=== PATIENT | female | born 1945 | race Caucasian/White ===

== ENCOUNTER → 2016-09-22 | Outpatient (CLI) | payer MEDICARE, BC ==
--- NOTE | 2016-09-22 12:47 | BD ---
EXAMINATION TYPE: MG DEXA axial skeleton. DATE OF EXAM: 09/22/2016 COMPARISON: 06.13.2014 DEXA bone scan CLINICAL HISTORY: M81.0 KNOWN OSTEOPOROSIS Height: 63 Weight: 178 FRAX RISK QUESTIONS: Alcohol (3 or more units per day): NO Family History (Parent hip fracture): NO Glucocorticoids (More than 3mos): NO (Ex: prednisone, prednisolone, methylprednisolone, dexamethasone, and hydrocortisone). History of Fracture in Adulthood: NO Secondary Osteoporosis: NO 1. Type 1 Diabetes: NO 2. Hyperthyroidism: NO 3. Menopause before 45: UNSURE 4. Malnutrition: NO 5. Chronic liver disease: NO Rheumatoid Arthritis: NO Current Tobacco Use: NO, QUIT 30 YRS AGO RISK FACTORS HISTORY OF: Family History of Osteoporosis: NONE AWARE OF Active: NO NOT REALLY, ARTHRITIS Diet low in dairy products/other sources of calcium: NO Postmenopausal woman: PARTIAL HYST AT AGE 32 Lost more than 2 inches in height since high school: NOT QUITE Hyperparathyroidism: NO Adrenal Insufficiency: NO MEDICATIONS: Prednisone or other steroids: NO Thyroid Medications: YES, SYNTHROID How Lon YRS Additional Medications: BP MEDS, ACID REFLUX MEDS, VIT D Additional History: SEVERE OSTEOARTHRITIS, ANKYLOSING SPONDYLOSIS, EXAM MEASUREMENTS: Bone mineral densitometry was performed using the [employer] System. Bone mineral density as measured about the Lumbar spine is: ----- L1-L4(G/cm2): 1.345 T Score Values are as follows: ----- L1: 0.6 ----- L2: 0.5 ----- L3: 0.9 ----- L4: 3.0 ----- L1-L4: 1.4 Bone mineral density has: Increased 6.0% since study of: 06.13.2014 Bone mineral density about the R hip (g/cm2): 0.839 Bone mineral density about the L hip (g/cm2): 0.856 T Score values are as follows: -----R Neck: -1.5 -----L Neck: -1.7 -----R Total: -1.3 -----L Total: -1.2 Bone mineral density has: Decreased -2.3% since study of: 06.13.2014 FRAX %'S: THERE IS A 10.0% CHANCE OF A MAJOR OSTEOPOROTIC FX AND A 1.5% CHANCE OF A HIP FX......P ROBABILITY IN 10 YRS TIME IMPRESSION: Osteopenia (T Score between -2.5 and -1 as noted by T score values in the bilateral hips remains pres ent. There remains slightly increased risk of fracture and the patient may be considered for treatmen t. Re-Screen 2-5 years. NOTE: T-SCORE=SD OF THE YOUNG ADULT MEAN.
--- NOTE | 2016-09-23 10:30 | MM ---
Reason for exam: screening (asymptomatic). Last mammogram was performed 1 year ago. History: Patient is postmenopausal. Family history of breast cancer in mother at age 65. Physical Findings: A clinical breast exam by your physician is recommended on an annual basis and results should be correlated with mammographic findings. MG 3D Screening Mammo W/Cad Bilateral CC and MLO view(s) were taken. Prior study comparison: September 11, 2015, right breast MG 3d work up w/cad RT. September 07, 2015, bilateral MG screening mammo w CAD. The breast tissue is heterogeneously dense. This may lower the sensitivity of mammography. Finding: There are typically benign round, diffuse and grouped calcifications in both breasts. Prominent ducts subaerolar left breast stable. There is no discrete abnormality. ASSESSMENT: Benign, BI-RAD 2 RECOMMENDATION: Routine screening mammogram of both breasts in 1 year.
== END | disposition home or self-care (01) ==
LOC: RADMAMWWP 10:00
PROVIDERS: ATTEND Internal Medicine Geriatric Medicine
DX: Z12.31 Encounter for screening mammogram for malignant neoplasm of breast (principal); M85.88 Other specified disorders of bone density and structure, other site
CPT/HCPCS: 77080; 77063; G0202

== ENCOUNTER → 2017-04-02 | Outpatient (CLI) | payer MEDICARE, BC ==
--- NOTE | 2017-04-02 09:38 | US ---
EXAMINATION TYPE: US thyroid st tissue head/neck DATE OF EXAM: 04/02/2017 COMPARISON: NONE CLINICAL HISTORY: Goiter E04.9. GLAND SIZE: Right Lobe: 4.8 x 2.0 x 1.9 cm Overall Parenchyma: homogenous Left Lobe: 4.5 x 1.8 x 1.4 cm Overall Parenchyma: homogeneous Isthmus Thickness: 0.5 cm NODULES RIGHT: # of nodules measured on right: 1 1. 0.3 X 0.1 x 0.3 cm echogenic nodule at the upper pole with well-defined margins; . This nodule is wider than tall and shows no intranodular vascularity. Prior size: no prior LEFT: # of nodules measured on left: 1 1. 0.2 X 0.2 x 0.4 cm mixed nodule at the mid pole with well-defined margins; . This nodule is wid er than tall and shows no intranodular vascularity. Prior size: no prior ISTHMUS: # of nodules measured in the isthmus: 0 Bilateral neck scanned, no evidence of lymphadenopathy. Thyroid gland is normal in size and homogeneous in echotexture with a few small nodules noted bilater ally. IMPRESSION: Normal-sized thyroid without worrisome greater than 1 cm solid or cystic nodules seen.
--- NOTE | 2017-04-02 10:30 | XR ---
EXAMINATION TYPE: XR Hip Bilateral Complete DATE OF EXAM: 04/02/2017 COMPARISON: NONE HISTORY: Pain TECHNIQUE: 2 views submitted FINDINGS: There is no evidence of erosive change or acute fracture. Hypertrophic change of the acetabulum and m oderate concentric narrowing of the joint space. Findings are symmetric bilaterally. No erosive gomez es. There is vascular calcifications in the pelvis. Hypertrophic changes along the greater trochanter noted bilaterally. Adjacent to the greater trochanter on the right there is an area soft tissue hete rotopic ossification. IMPRESSION: 1. Moderate arthritic changes. Correlate for femoral acetabular impingement.
== END | disposition home or self-care (01) ==
LOC: RADUSWWP 09:08
PROVIDERS: ATTEND Internal Medicine Geriatric Medicine
DX: E04.1 Nontoxic single thyroid nodule (principal); M16.0 Bilateral primary osteoarthritis of hip
CPT/HCPCS: 73521; 76536

== ENCOUNTER → 2017-06-26 | Outpatient (CLI) | payer MEDICARE, BC ==
--- NOTE | 2017-06-26 14:29 | US ---
EXAMINATION TYPE: US thyroid st tissue head/neck DATE OF EXAM: 06/26/2017 COMPARISON: US CLINICAL HISTORY: Hypo thyroid E03.9, . GLAND SIZE: Right Lobe: 4.4 x 2.1 x 2.4 cm Overall Parenchyma: homogenous Left Lobe: 4.3 x 1.3 x 1.9 cm Overall Parenchyma: homogeneous Isthmus Thickness: 0.7 cm NODULES RIGHT: # of nodules measured on right: 1 1. 0.3 X 0.2 x 0.2 cm hypoechoic cystic nodule at the mid pole with well-defined margins. This nod ule is wide as is tall and shows no intranodular vascularity. Prior size: 0.3 x 0.1 x 0.3 cm LEFT: # of nodules measured on left: 1 1. 0.3 X 0.3 x 0.2 cm hypoechoic complex cystic nodule at the mid pole with well-defined margins. This nodule is wider than tall and shows no intranodular vascularity. Prior size: 0.2 x 0.2 x 0.4 cm ISTHMUS: # of nodules measured in the isthmus: 0 Bilateral neck scanned, no evidence of lymphadenopathy. IMPRESSION: Nonspecific nodularity. The need to biopsy should be made on a clinical basis.
--- NOTE | 2017-06-26 14:36 | US ---
EXAMINATION TYPE: US transvaginal DATE OF EXAM: 06/26/2017 COMPARISON: NONE CLINICAL HISTORY: Hypo thyroid E03.9, Pelvic Pain R10.2. Back pain radiating to pelvis; recurrent UT I; hysterectomy 1977 TECHNIQUE: Transvaginal (TV) per order. Date of LMP: 1977 EXAM MEASUREMENTS: Uterus: surgically removed Endometrial Stripe: surgically removed Right Ovary: not seen Left Ovary: 1.4 x 1.0 x 0.9cm cm 1. Uterus: surgically removed 2. Endometrium: surgically removed 3. Right Ovary: not seen 4. Left Ovary: wnl; color flow and PW Doppler was present 5. Bilateral Adnexa: wnl, bowel is noted in right adnexa 6. Posterior cul-de-sac: wnl IMPRESSION: Postoperative changes of hysterectomy. No ovarian or adnexal mass appreciated.
== END | disposition home or self-care (01) ==
LOC: RADUSWWP 12:09
PROVIDERS: ATTEND Internal Medicine Geriatric Medicine
DX: R10.2 Pelvic and perineal pain (principal); E03.9 Hypothyroidism, unspecified; Z90.710 Acquired absence of both cervix and uterus
CPT/HCPCS: 76536; 76830

== ENCOUNTER → 2017-11-16 | Outpatient (CLI) | payer MEDICARE, BC ==
--- NOTE | 2017-11-16 12:01 | MM ---
Reason for exam: screening (asymptomatic). Last mammogram was performed 1 year and 2 months ago. History: Patient is postmenopausal. Family history of breast cancer in mother at age 65. Physical Findings: A clinical breast exam by your physician is recommended on an annual basis and results should be correlated with mammographic findings. MG 3D Screening Mammo W/Cad Bilateral CC and MLO view(s) were taken. Prior study comparison: September 22, 2016, bilateral MG 3d screening mammo w/cad. September 11, 2015, right breast MG 3d work up w/cad RT. There are scattered fibroglandular densities. There are benign appearing round calcifications bilaterally. There is no discrete abnormality. Prominent ducts subareolar left breast redemonstrated. ASSESSMENT: Benign, BI-RAD 2 RECOMMENDATION: Routine screening mammogram of both breasts in 1 year.
== END | disposition home or self-care (01) ==
LOC: RADMAMWWP 07:21
PROVIDERS: ATTEND Internal Medicine Geriatric Medicine
DX: Z12.31 Encounter for screening mammogram for malignant neoplasm of breast (principal)
CPT/HCPCS: 77063; 77067

== ENCOUNTER → 2019-03-18 | Outpatient (CLI) | payer MEDICARE, BC ==
--- NOTE | 2019-03-21 09:39 | MM ---
Reason for exam: screening (asymptomatic). Last mammogram was performed 1 year and 4 months ago. History: Patient is postmenopausal. Family history of breast cancer in mother at age 65. Took hormonal contraceptives for 8 years. Physical Findings: A clinical breast exam by your physician is recommended on an annual basis and results should be correlated with mammographic findings. MG 3D Screening Mammo W/Cad Bilateral CC and MLO view(s) were taken. Prior study comparison: November 16, 2017, bilateral MG 3d screening mammo w/cad. September 22, 2016, bilateral MG 3d screening mammo w/cad. There are scattered fibroglandular densities. Benign appearing bilateral calcifications. No suspicious abnormality. Stable left ductal ectasia. No significant changes when compared with prior studies. ASSESSMENT: Benign, BI-RAD 2 RECOMMENDATION: Routine screening mammogram of both breasts in 1 year.
== END | disposition home or self-care (01) ==
LOC: RADMAMWWP 08:58
PROVIDERS: ATTEND Internal Medicine Geriatric Medicine
DX: Z12.31 Encounter for screening mammogram for malignant neoplasm of breast (principal)
CPT/HCPCS: 77063; 77067

== ENCOUNTER → 2021-01-10 | Outpatient (CLI) | payer MEDICARE, BC ==
--- NOTE | 2021-01-10 10:19 | BD ---
EXAMINATION TYPE: Axial Bone Density DATE OF EXAM: 01/10/2021 COMPARISON: NONE CLINICAL HISTORY: Height: 64 Weight: 185.6 FRAX RISK QUESTIONS: Alcohol (3 or more units per day): no Family History (Parent hip fracture): no Glucocorticoids (More than 3mos): no (Ex: prednisone, prednisolone, methylprednisolone, dexamethasone, and hydrocortisone). History of Fracture in Adulthood: no Secondary Osteoporosis: 1. Type 1 Diabetes: no 2. Hyperthyroidism: no 3. Menopause before 45: yes 4. Malnutrition: no 5. Chronic liver disease: no Rheumatoid Arthritis: no Current Tobacco Use: no RISK FACTORS HISTORY OF: Surgery to Spine/Hip(right/left)/Wrist (right/left): no Family History of Osteoporosis: no Active: no Diet low in dairy products/other sources of calcium: yes Postmenopausal woman: yes Lost more than 2 inches in height since high school: no MEDICATIONS: blood pressure, shiloh Thyroid Medications: levothyroxine How Lon years Additional History: EXAM MEASUREMENTS: Bone mineral densitometry was performed using the [employer]. Bone mineral density as measured about the Lumbar spine is: ----- L1-L4(G/cm2): 1.243 T Score Values are as follows: ----- L2: 0.2 ----- L3: 1.1 ----- L4: 1.8 ----- L1-L4: 0.5 Bone mineral density has: decreased -3.9 % since study of: 09.22.2016 Bone mineral density about the R hip (g/cm2): 0.805 Bone mineral density about the L hip (g/cm2): 0.701 T Score values are as follows: -----R Neck: -1.7 -----L Neck: -2.4 -----R Total: -1.9 -----L Total: -1.8 Bone mineral density has: decreased -9.0 % since study of: 09.22.2016 IMPRESSION: Osteopenia NOTE: T-SCORE=SD OF THE YOUNG ADULT MEAN.
== END ==
LOC: RADBDWWP 08:51
PROVIDERS: ATTEND Internal Medicine Geriatric Medicine
DX: M85.851 Other specified disorders of bone density and structure, right thigh (principal); M85.852 Other specified disorders of bone density and structure, left thigh
CPT/HCPCS: 77080

== ENCOUNTER → 2021-02-06 | Outpatient (CLI) | payer MEDICARE, BC ==
--- NOTE | 2021-02-07 12:12 | MM ---
Reason for exam: screening (asymptomatic). Last mammogram was performed 1 year and 11 months ago. History: Patient is postmenopausal. Family history of breast cancer in mother at age 65. Took hormonal contraceptives for 8 years. Physical Findings: A clinical breast exam by your physician is recommended on an annual basis and results should be correlated with mammographic findings. MG 3D Screening Mammo W/Cad Bilateral CC and MLO view(s) were taken. Prior study comparison: March 18, 2019, bilateral MG 3d screening mammo w/cad. November 16, 2017, bilateral MG 3d screening mammo w/cad. There are scattered fibroglandular densities. There are benign appearing round calcifications bilaterally. There is no discrete abnormality. ASSESSMENT: Benign, BI-RAD 2 RECOMMENDATION: Routine screening mammogram of both breasts in 1 year.
== END | disposition home or self-care (01) ==
LOC: RADMAMWWP 07:22
PROVIDERS: ATTEND Internal Medicine Geriatric Medicine
DX: Z12.31 Encounter for screening mammogram for malignant neoplasm of breast (principal); Z80.3 Family history of malignant neoplasm of breast; Z78.0 Asymptomatic menopausal state
CPT/HCPCS: 77063; 77067

== ENCOUNTER → 2021-04-04 | Outpatient (CLI) | payer MEDICARE, BC ==
--- NOTE | 2021-04-04 14:34 | XR ---
EXAMINATION TYPE: XR chest 2V DATE OF EXAM: 04/04/2021 COMPARISON: Chest x-ray 12/23/2012 HISTORY: R06.02 TECHNIQUE: Frontal and lateral views of the chest are obtained. FINDINGS: There is no focal air space opacity, pleural effusion, or pneumothorax seen. The cardiac silhouette size is within normal limits. The osseous structures are intact, there is thoracic spond ylosis, findings of DISH are present. Prominent lung volumes suggest underlying COPD. Eventration of the right hemidiaphragm, right hemidiaphragm is mildly elevated. IMPRESSION: No acute cardiopulmonary process.
== END | disposition home or self-care (01) ==
LOC: RADXRMAIN 13:16
PROVIDERS: ATTEND Nurse Practitioner Family
DX: R06.02 Shortness of breath (principal)
CPT/HCPCS: 71046

== ENCOUNTER → 2021-05-17 | Outpatient (CLI) | payer MEDICARE, BC ==
--- NOTE | 2021-05-17 13:56 | US ---
EXAMINATION TYPE: US kidneys/renal and bladder DATE OF EXAM: 05/17/2021 COMPARISON: Ultrasound abdomen August 31, 2014 CLINICAL HISTORY: N39.0 UTI. UTI EXAM MEASUREMENTS: Right Kidney: 10.3 x 4.1 x 4.1 cm Left Kidney: 11.4 x 5.3 x 4.4 cm technical limitations due to large amount of overlying bowel content Right Kidney: no evidence of hydronephrosis Left Kidney: no evidence of hydronephrosis Bladder: appears wnl Bilateral Jets seen: no There is no evidence for hydronephrosis at this point in time. No nephrolithiasis is seen. No misty s are identified. The urinary bladder is adequately distended. Distal left ureter jet is seen. IMPRESSION: Images of Bladder appears within normal limits. No hydronephrosis noted bilaterally.
== END | disposition home or self-care (01) ==
LOC: RADUSWWP 13:19
PROVIDERS: ATTEND Internal Medicine Geriatric Medicine
DX: N39.0 Urinary tract infection, site not specified (principal)
CPT/HCPCS: 76770

== ENCOUNTER → 2023-06-09 | Outpatient (CLI) | payer MEDICARE, BC ==
--- NOTE | 2023-06-09 18:23 | BD ---
EXAMINATION TYPE: Axial Bone Density DATE OF EXAM: 06/09/2023 CLINICAL HISTORY: 77 years old Female. ICD-10 CODE: M81.0 AGRE RELATED OSTEOPOROSIS Height: 62.5in Weight: 188lbs FRAX RISK QUESTIONS: Secondary Osteoporosis: Rheumatoid Arthritis: yes RISK FACTORS HISTORY OF: MEDICATIONS: Thyroid Medications: Which medication: Levothyroxine How Lon years EXAM MEASUREMENTS: Bone mineral densitometry was performed using the [employer]. Bone mineral density as measured about the Lumbar spine is: ----- L1-L4(G/cm2): 1.373 T Score Values are as follows: ----- L1: -0.5 ----- L2: 1.0 ----- L3: 2.2 ----- L4: 2.7 ----- L1-L4: 1.6 Z Score Values are as follows: ----- L1: 0.6 ----- L2: 2.1 ----- L3: 3.3 ----- L4: 3.8 ----- L1-L4: 2.7 Bone mineral density has: Increased 10.5% since study of: 01-10-21 Bone mineral density about the R hip (g/cm2): 0.788 Bone mineral density about the L hip (g/cm2): 0.785 T Score values are as follows: -----R Neck: -1.9 -----L Neck: -1.8 -----R Total: -1.7 -----L Total: -1.8 Z Score values are as follows: -----R Neck: -0.4 -----L Neck: -0.3 -----R Total: -0.5 -----L Total: -0.5 Bone mineral density has: Increased 1.9% since study of: 01-10-21 FRAX%s: The graph provided illustrates a 15.9% chance for a major osteoporotic fx and a 4.2% chance f or the hips probability for fx in 10 years time. IMPRESSION: Osteopenia (T Score between -2.5 and -1). There is slightly increased risk of fracture and the patient may be considered for treatment. Re-Screen 2-5 years. NOTE: T-SCORE=SD OF THE YOUNG ADULT MEAN.
--- NOTE | 2023-06-11 12:44 | MM ---
Reason for Exam: Screening (asymptomatic). Last mammogram was performed 1 year(s) and 2 month(s) ago. Patient History: Menarche at age 14. First Full-Term at age 22. Hysterectomy at age 32. Postmenopausal. Patient used Hormonal Contraceptives for 8 years. Mother had breast cancer, age 65. Risk Values: Yulia 5 year model risk: 3.4%. NCI Lifetime model risk: 7.2%. Prior Study Comparison: 03/18/2019 Bilateral Screening Mammogram, [facility]. 02/06/2021 Bilateral Screening Mammogram, [facility]. 04/09/2022 Bilateral MG 3D screening mammo w/cad, [facility]. Tissue Density: There are scattered areas of fibroglandular density. Findings: Analyzed By CAD. Right breast: There is no suspicious group of microcalcifications or new suspicious mass. Left breast: There is no suspicious group of microcalcifications or new suspicious mass. Overall Assessment: Negative, BI-RAD 1 Management: Screening Mammogram of both breasts in [address] [facility] will attempt to contact patient to return for supplemental views and ultrasound if indicated. Patient should continue monthly self-breast exams. A clinical breast exam by your physician is recommended on an annual basis. This exam should not preclude additional follow-up of suspicious palpable abnormalities. Note on Yulia scores and lifetime risk: 1. A Yulia score greater than 3% is considered moderate risk. If this is the case, consider specialist referral to assess eligibility for a risk reducing agent. 2. If overall lifetime risk for the development of breast cancer is 20% or higher, the patient may qualify for future screening with alternating mammogram and breast MRI. Electronically signed and approved by: Pablo Singh DO
== END | disposition home or self-care (01) ==
LOC: RADMAMWWP 13:23
PROVIDERS: ATTEND Internal Medicine Geriatric Medicine
DX: Z12.31 Encounter for screening mammogram for malignant neoplasm of breast (principal); M85.89 Other specified disorders of bone density and structure, multiple sites; M81.0 Age-related osteoporosis without current pathological fracture; Z78.0 Asymptomatic menopausal state; Z80.3 Family history of malignant neoplasm of breast
CPT/HCPCS: 77063; 77067; 77080